=== PATIENT | female | born 1955 | race Caucasian/White ===

== ENCOUNTER 2023-07-14 15:44 | Outpatient (CLI) | payer MEDICARE | END 2023-07-14 15:45 | disposition home or self-care (01) | LOC: BICMAMMO 15:44 | PROVIDERS: ATTEND Registered Nurse | DX: Z13.820 Encounter for screening for osteoporosis (principal); M85.89 Other specified disorders of bone density and structure, multiple sites; Z78.0 Asymptomatic menopausal state | CPT/HCPCS: 77080 ==

== ENCOUNTER 2023-10-15 08:35 | Outpatient (CLI) | payer MEDICARE | END 2023-10-15 08:36 | disposition home or self-care (01) | LOC: BICMAMMO 08:35 | PROVIDERS: ATTEND Registered Nurse | DX: Z12.31 Encounter for screening mammogram for malignant neoplasm of breast (principal); Z85.828 Personal history of other malignant neoplasm of skin | CPT/HCPCS: 77063; 77067 ==

== ENCOUNTER 2024-02-16 16:04 | Outpatient (CLI) | payer MEDICARE | END 2024-02-16 16:05 | disposition home or self-care (01) | LOC: BICCT 16:04 | PROVIDERS: ATTEND Registered Nurse | DX: R07.89 Other chest pain (principal); R05.3 Chronic cough; R91.8 Other nonspecific abnormal finding of lung field | CPT/HCPCS: 71250 ==